=== PATIENT | female | born 1970 | race Caucasian/White ===

== ENCOUNTER 2024-05-30 07:07 | Observation (INO) | payer BC ==
[2024-05-26 11:51] LABS: BASOPHILS % (AUTO) 0.8 % (0-1); EOSINOPHILS # (AUTO) 0.1 X10'3 (0-0.9); EOSINOPHILS % (AUTO) 2.7 % (0-6); LYMPHOCYTES # (AUTO) 1.2 X10'3 (1.1-4.8); LYMPHOCYTES % (AUTO) 25.3 % (21-51); MEAN CORPUSCULAR HEMOGLOBIN 27.7 PG (27.0-31.0); MEAN CORPUSCULAR HGB CONC 33.3 g/dL (33.0-36.5); MEAN CORPUSCULAR VOLUME 83.1 FL (78-98); MONOCYTES # (AUTO) 0.4 X10'3 (0-0.9); MONOCYTES % (AUTO) 9.3 % (2-12); NEUTROPHILS # (AUTO) 2.9 X10'3 (1.8-7.7); NEUTROPHILS % (AUTO) 61.9 % (42-75); PRE OP HEMATOCRIT 37.1 % (35.0-45.0); PRE OP HEMOGLOBIN 12.3 g/dL (12.0-16.0); PRE OP PLATELET COUNT 295 X10'3 (140-440); PRE OP WHITE BLOOD COUNT 4.7 10'3 (4.8-10.8); RED BLOOD COUNT 4.46 X10'6 (4.20-5.60); RED CELL DISTRIBUTION WIDTH 13.3 % (11.5-14.5)
[2024-05-26 12:06] LABS: ALBUMIN 3.8 G/DL (3.4-5.0); ALKALINE PHOSPHATASE 66 IU/L (46-116); BLOOD UREA NITROGEN 15 MG/DL (7-18); BUN/CREATININE RATIO 21.7 (10.0-20.0); CALCIUM 9.2 MG/DL (8.5-10.1); CHLORIDE 105 MMOL/L (99-107); CREATININE 0.69 MG/DL (0.40-0.90); PRE OP ALT 21 U/L (30-65); PRE OP ANION GAP 5 (8-16); PRE OP AST 15 U/L (10-37); PRE OP BILIRUB, TOTAL 0.4 MG/DL (0.0-1.0); PRE OP GLUCOSE 94 MG/DL (70-104); PRE OP POTASSIUM 3.9 MMOL/L (3.4-5.1); PRE OP SODIUM 141 MMOL/L (135-145); TOTAL CARBON DIOXIDE 30.9 MMOL/L (24-32); TOTAL PROTEIN 7.5 G/DL (6.4-8.2); eGFR 88 ML/MIN
[2024-05-30] VITALS (25 sets, daily range): BP systolic 102–151; BP diastolic 61–93; PULSE 84–107; RESP 11–17; TEMP 97.5–98.5; O2SAT 91–99
[~2024-05-30] VITALS: Ht 167.6 cm; Wt 84.0 kg
[2024-05-30] MEDS: famotidine 20mg tablet PO ONE (05:30)
[2024-05-30] MEDS: ringers solution, lacted 1,000 ML IV SCH ×2 (05:30→11:05)
[2024-05-30] MEDS: ceFAZolin 2gm in dextrose, iso 50 ML IV ONE (05:30)
[~2024-05-30 07:07] MED LIST: ACID RELIEF PO; BUPIVAcaine 2.5mg/ml inj 50ml vial (contains preservative) ONE; LIDOcaine 1% 30ml preserv. free vial ONE; NORT25CA PO; [UNRECOGNIZED DRUG - OTHER] PO
[2024-05-30] MEDS: clindamycin-Cleocin 900mg/D5W 50 ML IV ONE (08:29)
[2024-05-30] MEDS ORDERED: sevoflurane 250ml liquid IH ONE (08:45)
[2024-05-30] MEDS ORDERED: midazolam 1 mg/ML 2ml injection ONE (08:55)
[2024-05-30] MEDS ORDERED: fentaNYL /PF 50mcg/ml 5ml ampule ONE (08:55)
[2024-05-30] MEDS ORDERED: rocuronium 10mg/ml inj IV ONE ×2 (09:05→10:43)
[2024-05-30] MEDS ORDERED: propofol inj 20 ML IV ONE (09:05)
[2024-05-30] MEDS ORDERED: ondansetron/PF 4mg/2ml inj ONE (09:05)
[2024-05-30] MEDS ORDERED: LIDOcaine 2% (20mg/ml) 5ml vial ONE (09:05)
[2024-05-30] MEDS ORDERED: dexamethasone sod phosphate 4mg/ml inj. ONE (09:05)
[2024-05-30] MEDS ORDERED: 0.9 % SODIUM CHLORIDE 10 ML VIAL ONE ×2 (09:07→09:31)
[2024-05-30] MEDS: LIDOcaine 1% 30ml preserv. free vial IJ ONE (09:08)
[2024-05-30] MEDS ORDERED: ePHEDrine 50MG/ML INJ. ONE (09:08)
[2024-05-30] MEDS ORDERED: phenylephrine 10mg/ml inj. ONE (09:31)
[2024-05-30] MEDS ORDERED: glycopyrrolate 0.2mg/ml inj ONE (10:57)
[2024-05-30] MEDS ORDERED: neostigmine methylsulfate 1 MG/ML 10ml vial ONE (10:57)
[2024-05-30] MEDS ORDERED: hydrALAZINE 20mg/ml inj. IV PRN (11:05)
[2024-05-30] MEDS ORDERED: meperidine/PF 25mg/ml syringe IV PRN ×2 (11:05)
[2024-05-30] MEDS: acetaminophen 1,000mg/100ml IV 100 ML IV ONE (11:05)
[2024-05-30] MEDS ORDERED: morphine 4 MG/ML inj SYRINge IV PRN (11:05)
[2024-05-30] MEDS ORDERED: proCHLORperazine 10 MG/2 ml inj IV PRN (11:05)
[2024-05-30] MEDS ORDERED: labetalol 20mg/4ml (5mg/ml) syringe IV PRN (11:05)
[2024-05-30] MEDS ORDERED: ondansetron/PF 4mg/2ml inj IV PRN ×2 (11:05→14:00)
[2024-05-30] MEDS: meperidine/PF 25mg/ml syringe IV PRN (11:15)
[2024-05-30] MEDS: morphine 2 MG/ML inj. syringe IV PRN (11:29)
[2024-05-30] MEDS: normal saline 1000ml 1,000 ML IV SCH (14:00)
[2024-05-30] MEDS ORDERED: naloxone 0.4 mg/ml inj IV PRN (14:00)
[2024-05-30] MEDS: potassium CL 20mEq in D5-1/2NS 1,000 ML IV SCH (14:54)
[2024-05-30] MEDS: HYDROmorph/NS 0.2 mg/ml PCA 100 ML IV SCH (15:00)
[2024-05-30] MEDS: heparin, porcine 5000 units/ml vial SQ SCH (20:10)
[2024-05-31 02:00] VITALS: BP 108/63; PULSE 86; RESP 16; TEMP 98.1; O2SAT 95
[2024-05-31 06:00] VITALS: BP 104/63; PULSE 84; RESP 19; TEMP 98.2; O2SAT 97
[2024-05-31] MEDS: nystatin 15 GM powder TP SCH (08:27)
[2024-05-31 09:00] VITALS: RESP 16
[2024-05-31] MEDS: oxyCODONE/APAP 5-325mg tablet PO ONE (09:14)
[2024-05-31] MEDS: PCA WASTE DOCUMENTATION 1 MG ML MC SCH (09:51)
[2024-05-31 10:00] VITALS: BP 111/58; PULSE 82; RESP 16; TEMP 97.5; O2SAT 97
[2024-05-31] MEDS: oxyCODONE/APAP 5-325mg tablet PO PRN (13:27)
[2024-05-31] MEDS ORDERED: PER5325T PO (14:09)
[2024-05-31 14:41] VITALS: RESP 16
[2024-05-31] MEDS ORDERED: nortriptyline 25mg capsule PO SCH (21:00)
== END 2024-05-31 16:35 | disposition home or self-care (01) ==
LOC: PAS 07:07 → SUR 3N 14:00
PROVIDERS: ADMIT Surgery; ATTEND Surgery
DX: K44.9 Diaphragmatic hernia without obstruction or gangrene (principal); K21.00 Gastro-esophageal reflux disease with esophagitis, without bleeding; Z88.0 Allergy status to penicillin; Z88.2 Allergy status to sulfonamides; Z79.899 Other long term (current) drug therapy
CPT/HCPCS: 36415; 43282; 71045; 80053; 82948; 85025; 87081; 96365; 96366; 96372; C1781; G0378; J0690; J1100; J1171; J1644; J2003; J2175; J2250; J2270; J2405; J2704; J2710; J3010; J3480; J3490; J7120; A4615; A4618; J2370

== ENCOUNTER 2024-06-16 19:11 | Emergency (ER) | payer BC ==
[~2024-06-16] VITALS: Ht 167.6 cm; Wt 77.3 kg
[~2024-06-16 19:11] MED LIST changes: -BUPIVAcaine 2.5mg/ml inj 50ml vial (contains preservative) ONE; -LIDOcaine 1% 30ml preserv. free vial ONE; +PER5325T PO
[2024-06-16 20:01] LABS: BASOPHILS % (AUTO) 0.2 % (0-1); EOSINOPHILS # (AUTO) 0.4 X10'3 (0-0.9); EOSINOPHILS % (AUTO) 4.5 % (0-6); HEMATOCRIT 41.5 % (35.0-45.0); HEMOGLOBIN 13.9 g/dl (12.0-16.0); LYMPHOCYTES # (AUTO) 1.1 X10'3 (1.1-4.8); LYMPHOCYTES % (AUTO) 12.2 % (21-51); MEAN CORPUSCULAR HEMOGLOBIN 27.2 PG (27.0-31.0); MEAN CORPUSCULAR HGB CONC 33.4 g/dL (33.0-36.5); MEAN CORPUSCULAR VOLUME 81.6 FL (78-98); MONOCYTES # (AUTO) 0.5 X10'3 (0-0.9); MONOCYTES % (AUTO) 6.4 % (2-12); NEUTROPHILS # (AUTO) 6.6 X10'3 (1.8-7.7); NEUTROPHILS % (AUTO) 76.7 % (42-75); PLATELET COUNT 333 X10'3 (140-440); RED BLOOD COUNT 5.09 X10'6 (4.20-5.60); RED CELL DISTRIBUTION WIDTH 13.9 % (11.5-14.5); WHITE BLOOD COUNT 8.6 X10'3 (4.5-11.0)
[2024-06-16 20:21] LABS: ALANINE AMINOTRANSFERASE 25 U/L (12-78); ALBUMIN 3.5 G/DL (3.4-5.0); ALBUMIN/GLOBULIN RATIO 1.1 (1.1-1.5); ALKALINE PHOSPHATASE 71 IU/L (46-116); ANION GAP 9 (8-16); ASPARTATE AMINO TRANSFERASE 20 U/L (10-37); BILIRUBIN,TOTAL 0.4 MG/DL (0.1-1.0); BLOOD UREA NITROGEN 14 MG/DL (7-18); BUN/CREATININE RATIO 15.4 (10.0-20.0); CALCIUM 8.5 MG/DL (8.5-10.1); CHLORIDE 105 MMOL/L (99-107); CREATININE 0.91 MG/DL (0.40-0.90); GLUCOSE 93 MG/DL (70-104); LIPASE 32 U/L (16-77); POTASSIUM 3.8 MMOL/L (3.5-5.1); SODIUM 139 MMOL/L (135-145); TOTAL CARBON DIOXIDE 25.5 MMOL/L (24-32); TOTAL PROTEIN 6.8 G/DL (6.4-8.2); eCRCL 65 ML/MIN; eGFR 64 ML/MIN
[2024-06-16 23:39] VITALS: BP 119/78; PULSE 90; O2SAT 97
[2024-06-16 23:41] VITALS: RESP 19
[2024-06-17] MEDS: ondansetron/PF 4mg/2ml inj IV ONE (00:37)
[2024-06-17] MEDS: normal saline 1000ml 1,000 ML IV ONE (00:37)
[2024-06-17] MEDS ORDERED: iohexol 300mg/ml 100ml inj. ONE (00:39)
[2024-06-17] MEDS ORDERED: ONDA-245 PO (02:11)
[2024-06-17] MEDS ORDERED: LOPE2CAP PO (02:11)
[2024-06-17] MEDS ORDERED: HYDR-3965 PO (02:11)
[2024-06-17 02:29] VITALS: TEMP 97.9
== END 2024-06-17 02:30 | disposition home or self-care (01) ==
LOC: ER 19:12
DX: K52.9 Noninfective gastroenteritis and colitis, unspecified (principal); Z88.0 Allergy status to penicillin; Z88.2 Allergy status to sulfonamides; Z79.899 Other long term (current) drug therapy
CPT/HCPCS: 36415; 74178; 80053; 83690; 84145; 84484; 85025; 96361; 96374; 99285; J2405; J7030; Q9967